=== PATIENT | female | born 1970 | race African-American/Black ===

== ENCOUNTER → 2017-03-04 | Outpatient (CLI) | payer OTHER ==
--- NOTE | 2017-03-04 16:25 | KCIC ---
Bilateral digital screening mammograms: Reason for examination: Routine screening. Comparison is made to previous studies dated 12/31/2013 and 12/06/2012. The skin and nipples show no abnormalities. No abnormal axillary lymph nodes are seen. The breast parenchyma shows scattered fibroglandular density. (Breast density: Category B.) There are no dominant masses, suspicious calcifications or architectural distortions. Impression: No evidence of malignancy. Recommend routine screening. BI-RADS Category 1: Negative. "Our facility is accredited by the [employer] Mammography [employer]." This patient's information has been entered into a reminder system for the patient to be notified with the results of her examination and a target date for the next mammogram. Electronically signed by: Berna Lares MD (03/04/2017 4:22 PM) [id number]
== END | disposition home or self-care (01) ==
LOC: KCIC MAMMO 13:03
PROVIDERS: ATTEND Obstetrics & Gynecology
DX: Z12.31 Encounter for screening mammogram for malignant neoplasm of breast (principal)
CPT/HCPCS: G0202; 77067

== ENCOUNTER 2017-06-06 22:29 | Emergency (ER) | payer OTHER ==
[2017-06-06] MEDS: IBUPROFEN 800 MG TABLET. PO (22:59)
[2017-06-06] MEDS: CYCLOBENZAPRINE 10 MG TABLET. PO (22:59)
== END 2017-06-06 23:00 | disposition home or self-care (01) ==
LOC: ER 22:29
DX: M43.6 Torticollis (principal); E11.9 Type 2 diabetes mellitus without complications
CPT/HCPCS: 99283